=== PATIENT | female | born 2000 | race Caucasian/White ===

== ENCOUNTER 2018-09-23 12:23 | Emergency (ER) | payer BC ==
[2018-09-23 14:20] VITALS: BP 108/70
--- NOTE | 2018-09-23 15:19 | UC ---
Throat Pain/Nasal Сергей HPI - HPI Summary HPI Summary: 17-year-old female presents with progressively worsening sore throat. States that she was seen at the [facility] on Monday for fever of 103 F and sore throat. A rapid strep and flu was performed at that time which were both negative. Based on her symptoms she was treated presumptively for strep throat and placed on Pen-Vee K 500 mg twice a day 10 days which she states she has been compliant. She was also placed on prednisone 20 mg daily 5 days which she completed today. States her fevers have subsided however the sore throat has progressively gotten worse, she is having more difficulty swallowing, and she is noticing a foul taste in her mouth. States pain occasionally radiates into her left ear. Denies difficulty breathing, cough, chest pain, abdominal pain, nausea, or vomiting. - History of Current Complaint Chief Complaint: UCRespiratory Stated Complaint: SORE, SWOLLEN THROAT Time Seen by Provider: 09/23/18 14:34 Hx Obtained From: Patient Hx Last Menstrual Period: unknown Pain Intensity: 7 - Allergies/Home Medications Allergies/Adverse Reactions: Allergies Allergy/AdvReac Type Severity Reaction Status Date / Time Sulfa (Sulfonamide Allergy Rash Verified 09/23/18 14:14 Antibiotics) Home Medications: Home Medications Bcp 1 tab PO DAILY 09/23/18 [History] Penicillin VK TAB* [Penicillin VK 250 mg Tab*] 500 mg PO TID 09/23/18 [History Confirmed 09/23/18] predniSONE [Prednisone 20 MG TAB] 20 mg PO DAILY 09/23/18 [History Confirmed 05/04] PMH/Surg Hx/FS Hx/Imm Hx Previously Healthy: Yes - Denies significant PMH - Surgical History Surgical History: None - Family History Known Family History: Positive: Non-Contributory - Social History Occupation: Student Lives: Dormitory/Roommates Alcohol Use: None Substance Use Type: None Smoking Status (MU): Never Smoked Tobacco Review of Systems All Other Systems Reviewed And Are Negative: Yes Constitutional: Positive: Fever, Chills Skin: Negative: Rash Eyes: Negative: Drainage, Eye Redness ENT: Positive: Sore Throat, Ear Ache. Negative: Nasal Discharge, Sinus Congestion, Sinus Pain/Tenderness Respiratory: Negative: Shortness Of Breath, Cough Cardiovascular: Negative: Palpitations, Chest Pain Gastrointestinal: Negative: Abdominal Pain, Vomiting, Diarrhea, Nausea Genitourinary: Positive: Negative Musculoskeletal: Positive: Negative Neurological: Positive: Negative Is Patient Immunocompromised?: No Physical Exam - Summary Physical Exam Summary: GENERAL APPEARANCE: Well developed, well nourished, alert and cooperative, and appears to be in no acute distress. Hoarse voice. EYES: Conjunctiva clear. No drainage. Vision is grossly intact. EARS: External auditory canals and tympanic membranes clear, hearing grossly intact. NOSE: No nasal discharge. THROAT: Pharyngeal erythema. Tonsils 2+ with medial deviation of the left tonsil touching the uvula. Uvula midline. Malodorous breath. Oral cavity normal. Teeth and gingiva in good general condition. NECK: Neck supple. Tender moderate left anterior lymphadenopathy. CARDIAC: Normal S1 and S2. No S3, S4 or murmurs. Rhythm is regular. There is no peripheral edema, cyanosis or pallor. Extremities are warm and well perfused. Capillary refill is less than 2 seconds. Peripheral pulses intact. LUNGS: Clear to auscultation without rales, rhonchi, wheezing or diminished breath sounds. ABDOMEN: Positive bowel sounds. Soft, nondistended, nontender. No guarding or rebound. No masses or hepatosplenomegally. MUSKULOSKELETAL: ROM intact to all extremities. No joint erythema or tenderness. Normal muscular development. Normal gait. SKIN: Skin normal color, texture and turgor with no lesions or eruptions. Triage Information Reviewed: Yes Vital Signs: Initial Vital Signs Temp 98.9 F 09/23/18 14:16 Pulse 71 09/23/18 14:16 Resp 15 09/23/18 14:16 BP 108/70 09/23/18 14:16 Pulse Ox 99 09/23/18 14:16 Vital Signs Reviewed: Yes Throat Pain/Nasal Course/Dx - Course Course Of Treatment: 17-year-old female presents with progressively worsening sore throat. States that she was seen at the [facility] on Monday for fever of 103 F and sore throat. A rapid strep and flu was performed at that time which were both negative. Based on her symptoms she was treated presumptively for strep throat and placed on Pen-Vee K 500 mg twice a day 10 days which she states she has been compliant. She was also placed on prednisone 20 mg daily 5 days which she completed today. States her fevers have subsided however the sore throat has progressively gotten worse, she is having more difficulty swallowing, and she is noticing a foul taste in her mouth. States pain occasionally radiates into her left ear. Denies difficulty breathing, cough, chest pain, abdominal pain, nausea, or vomiting. Afebrile. Vital signs stable. Exam reveals a young adult female in no acute distress with notably hoarse voice, pharyngeal erythema, 2+ tonsils with a medial deviation of the left tonsil which is touching the uvula. Uvula remains midline. She has some notable tender cervical lymphadenopathy of the left anterior cervical nodes. Remainder of exam is otherwise unremarkable. I'm recommending that she be evaluated in the emergency room at this time. 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 She is electing to transport via private vehicle with her friend driving her. She was instructed to remain NPO until her evaluation. - Differential Dx/Diagnosis Differential Diagnosis/HQI/PQRI: Peritonsillar Abscess, Pharyngitis, Tonsillitis Provider Diagnosis: Peritonsillar abscess Discharge - Sign-Out/Discharge Documenting (check all that apply): Patient Departure All imaging exams completed and their final reports reviewed: No Studies - Discharge Plan Condition: Stable Disposition: HOME-RECOMMEND TO ED Patient Education Materials: Peritonsillar Abscess (ED) Referrals: No Primary Care Phys,NOPCP [Primary Care Provider] - Additional Instructions: You have a condition called peritonsilar abscess which is a collection of pus behind the wall of the tonsil. Go directly to [facility] emergency room for evaluation and treatment. Do not eat or drink until after you have been evaluated in the emergency room. - Billing Disposition and Condition Condition: STABLE Disposition: Home-Recommend to ED
== END 2018-09-23 15:30 | disposition home health service (06) ==
LOC: UCCORT 12:23
DX: J36 Peritonsillar abscess (principal); Z88.2 Allergy status to sulfonamides
CPT/HCPCS: 99202; G0463

== ENCOUNTER → 2018-09-23 17:07 | Emergency (ER) | payer BC ==
[~2018-09-23 17:07] MED LIST: Acetaminophen TAB* 325 MG PO ONE; Clindamycin 600 MG/D5W BAG(*) 600 MG/50 ML BAG IV ONE; Dexamethasone IV* 4 MG/ML 5 ML VIAL (20 MG) IVPB ONE; Iohexol 300* (CONTRAST) 10 ML SDV IV ONE; Ketorolac INJ* 30 MG/ML 1 ML VIAL IV ONE; Ketorolac INJ* 30 MG/ML 1 ML VIAL ONE; NS 0.9% 1000 ML** 1,000 ML IV ONE; Piperacillin/Tazobac ADVAN(*) 3.375 GM in NS 0.9% 100 ML* 100 ML IVPB ONE
[2018-09-23 18:07] LABS: ABS Basophils 0.1 10^3/ul (0-0.2); ABS Eosinophils 0.1 10^3/ul (0-0.6); ABS Lymphocytes 3.2 10^3/ul (1.0-4.8); ABS Monocytes 0.8 10^3/ul (0-0.8); ABS Neutrophils 7.2 10^3/ul (1.5-7.7); ABS Nucleated RBC 0 10^3/ul; Eosinophil % 0.9 %; Hematocrit 38 % (35-47); Hemoglobin 12.5 g/dl (12.0-16.0); Lymphocyte % 28.3 %; Mean Corpuscular HGB Conc 33 g/dl (31-36); Mean Corpuscular Hemoglobin 30 pg (27-31); Mean Corpuscular Volume 89 fL (80-97); Mean Platelet Volume 7.6 fL (7.4-10.4); Nucleated Red Blood Cells % 0.2; Platelet Count 337 10^3/ul (150-450); Red Cell Distribution Width 13 % (10.5-15); White Blood Count 11.4 10^3/ul (3.5-10.8)
[2018-09-23 18:23] LABS: Albumin 4.1 g/dL (3.2-5.2); Albumin/Globulin Ratio 1.4 (1-3); BUN/Creatinine Ratio 17.8 (8-20); C Reactive Protein 59.26 mg/L (<8.01); Calcium 9.1 mg/dL (8.6-10.3); EGFR African American 97.6 (>60); EGFR Non-African American 80.7 (>60); Globulin 2.9 g/dL (2-4); Potassium 3.5 mmol/L (3.5-5.0); Total Bilirubin 0.4 mg/dL (0.2-1.0)
--- NOTE | 2018-09-23 20:53 | ED ---
Throat Pain/Nasal Congestion - HPI Summary HPI Summary: Patient complains of left side sore throat pain 5 days. Patient was seen at [facility] 5 days ago was negative for flu, negative for strep but placed on Pen-Vee K and prednisone taper with no subsequent relief. Patient was seen by community care today and sent to the ED for further evaluation of possible peritonsillar abscess. Patient states she had fever, body aches and headache Monday and but has had none since. Patient denies fever, cough, neck stiffness, or change, WARREN, CP, SOB, N/V/D, abdominal pain, change in urine, change in BM. Patient has decreased by mouth intake, but tolerating fluids and food. Medical history is none. - History of Current Complaint Chief Complaint: EDThroatPain Time Seen by Provider: 09/23/18 17:47 Hx Obtained From: Patient Onset/Duration: Gradual Onset Severity: Moderate Associated Signs And Symptoms: Positive: Dysphagia. Negative: Drooling, Hoarseness Cough: None - Allergies/Home Medications Allergies/Adverse Reactions: Allergies Allergy/AdvReac Type Severity Reaction Status Date / Time Sulfa (Sulfonamide Allergy Rash Verified 09/23/18 17:15 Antibiotics) PMH/Surg Hx/FS Hx/Imm Hx Endocrine/Hematology History: Denies: Hx Diabetes Cardiovascular History: Denies: Hx Hypertension History: Denies: Hx Renal Disease Musculoskeletal History: Denies: Hx Gout Sensory History: Denies: Hx Eye Prosthesis Opthamlomology History: Denies: Hx Legally Blind EENT History: Denies: Hx Deafness Neurological History: Denies: Hx CVA Infectious Disease History: No Infectious Disease History: Denies: Traveled Outside the [place] in Last 30 Days - Family History Known Family History: Positive: Non-Contributory - Social History Alcohol Use: None Substance Use Type: Reports: None Smoking Status (MU): Never Smoked Tobacco Review of Systems Constitutional: Negative Eyes: Negative Positive: Sore Throat Cardiovascular: Negative Respiratory: Negative Gastrointestinal: Negative Genitourinary: Negative Musculoskeletal: Negative Skin: Negative Neurological: Negative Psychological: Normal All Other Systems Reviewed And Are Negative: Yes Physical Exam - Summary Physical Exam Summary: Swollen tonsil left side. No exudates. No trismus. No drooling. Normal voice. Uvula midline. Right side appears normal. Airway patent. Lung sounds clear to auscultation bilaterally. Triage Information Reviewed: Yes Vital Signs On Initial Exam: Initial Vitals Temp Pulse Resp BP Pulse Ox 98.1 F 86 16 121/67 99 09/23/18 17:12 09/23/18 17:12 09/23/18 17:12 09/23/18 17:12 09/23/18 17:12 Vital Signs Reviewed: Yes Appearance: Positive: Well-Appearing Skin: Positive: Warm Head/Face: Positive: Normal Head/Face Inspection Eyes: Positive: Normal ENT: Positive: Pharyngeal erythema, TMs normal, Tonsillar swelling, Uvula midline. Negative: Tonsillar exudate, Trismus, Muffled voice, Hoarse voice Neck: Positive: Supple Respiratory/Lung Sounds: Positive: Clear to Auscultation Cardiovascular: Positive: Normal Abdomen Description: Positive: Nontender Musculoskeletal: Positive: Normal Neurological: Positive: Normal Psychiatric: Positive: Normal AVPU Assessment: Alert - [place] Coma Scale Best Eye Response: 4 - Spontaneous Best Motor Response: 6 - Obeys Commands Best Verbal Response: 5 - Oriented Coma Scale Total: 15 Diagnostics - Vital Signs Vital Signs Temp Pulse Resp BP Pulse Ox 09/23/18 17:12 98.1 F 86 16 121/67 99 - Laboratory Lab Results: Lab Results 09/23/18 09/23/18 Range/Units 17:59 17:59 WBC 11.4 H (3.5-10.8) 10^3/ul RBC 4.20 (4.00-5.40) 10^6/ul Hgb 12.5 (12.0-16.0) g/dl Hct 38 (35-47) % MCV 89 (80-97) fL MCH 30 (27-31) pg MCHC 33 (31-36) g/dl RDW 13 (10.5-15) % Plt Count 337 (150-450) 10^3/ul MPV 7.6 (7.4-10.4) fL Neut % (Auto) 63.4 % Lymph % (Auto) 28.3 % Foster % (Auto) 6.7 % Eos % (Auto) 0.9 % Baso % (Auto) 0.7 % Absolute Neuts (auto) 7.2 (1.5-7.7) 10^3/ul Absolute Lymphs (auto) 3.2 (1.0-4.8) 10^3/ul Absolute Monos (auto) 0.8 (0-0.8) 10^3/ul Absolute Eos (auto) 0.1 (0-0.6) 10^3/ul Absolute Basos (auto) 0.1 (0-0.2) 10^3/ul Absolute Nucleated RBC 0 10^3/ul Nucleated RBC % 0.2 Sodium 137 (135-145) mmol/L Potassium 3.5 (3.5-5.0) mmol/L Chloride 103 (101-111) mmol/L Carbon Dioxide 28 (22-32) mmol/L Anion Gap 6 (2-11) mmol/L BUN 16 (6-24) mg/dL Creatinine 0.90 (0.51-0.95) mg/dL Est GFR ( Amer) 97.6 (>60) Est GFR (Non-Af Amer) 80.7 (>60) BUN/Creatinine Ratio 17.8 (8-20) Glucose 129 H (70-100) mg/dL Calcium 9.1 (8.6-10.3) mg/dL Total Bilirubin 0.40 (0.2-1.0) mg/dL AST 12 L (13-39) U/L ALT 17 (7-52) U/L Alkaline Phosphatase 47 (34-104) U/L C-Reactive Protein 59.26 H (<8.01) mg/L Total Protein 7.0 (6.4-8.9) g/dL Albumin 4.1 (3.2-5.2) g/dL Globulin 2.9 (2-4) g/dL Albumin/Globulin Ratio 1.4 (1-3) Monoscreen Negative (Negative) Result Diagrams: 09/23/18 17:59 09/23/18 17:59 Lab Statement: Any lab studies that have been ordered have been reviewed, and results considered in the medical decision making process. EENT Course/Dx - Course Course Of Treatment: Patient complains of left side sore throat pain 5 days. Patient was seen at [facility] 5 days ago was negative for flu, negative for strep but placed on Pen-Vee K and prednisone taper with no subsequent relief. Patient was seen by community care today and sent to the ED for further evaluation of possible peritonsillar abscess. Patient states she had fever, body aches and headache Monday and but has had none since. Patient denies fever, cough, neck stiffness, or change, WARREN, CP, SOB, N/V/D, abdominal pain, change in urine, change in BM. Patient has decreased by mouth intake, but tolerating fluids and food. Medical history is none. Physical exam :Swollen tonsil left side. No exudates. No trismus. No drooling. Normal voice. Uvula midline. Right side appears normal. Airway patent. Lung sounds clear to auscultation bilaterally. Vital signs within normal limits. WBC 11.4. CRP 59. Labs otherwise unremarkable. CT soft tissue neck positive for peritonsillar abscess 2 cm x [address] ENT [address] Dickerson who recommended clindamycin 600 mg IV with subsequent Rx for clindamycin by mouth. Also recommended 1 L normal saline. Patient also given Decadron 10 mg IV. ( Patient finished prednisone taper yesterday.) Tuan stated patient should call office at 8:15 tomorrow morning and they will fit her in tomorrow. - Diagnoses Provider Diagnoses: Peritonsillar abscess Discharge - Sign-Out/Discharge Documenting (check all that apply): Patient Departure Patient Received Moderate/Deep Sedation with Procedure: No - Discharge Plan Condition: Stable Disposition: HOME Prescriptions: Clindamycin HCl 450 mg PO TID 7 Days #21 capsule Patient Education Materials: Peritonsillar Abscess (ED) Referrals: No Primary Care Phys,NOPCP [Primary Care Provider] - Jay Dickerson MD [Medical Doctor] - Additional Instructions: Call Dr Dickerson [facility] at [facility]:15 Monday morning and they will give you an appointment that day. Take antibiotics as directed. Return to the ED for any new or worsening symptoms. - Billing Disposition and Condition Condition: STABLE Disposition: Home
[2018-09-23 23:18] VITALS: BP 0/0
== END | disposition home or self-care (01) ==
LOC: ED 17:07
DX: J36 Peritonsillar abscess (principal); Z88.2 Allergy status to sulfonamides
CPT/HCPCS: 36415; 70491; 80053; 85025; 86140; 86308; 96374; 96375; 99282; A9270-GY; J1100; J1885; Q9967

== ENCOUNTER 2019-08-05 14:19 | Emergency (ER) | payer BC ==
[2019-08-05 15:35] VITALS: BP 110/62
--- NOTE | 2019-08-05 16:18 | UC ---
Complaint Female HPI - HPI Summary HPI Summary: 18-year-old college student who states that she has had white vaginal discharge with extreme itchiness over the past 2 weeks. She is a virgin and has never been sexually active. She has never had a pelvic exam. She has not been on any antibiotics recently. She states the discharged of have an odor to it but not extremely foul. - History Of Current Complaint Chief Complaint: UCGU Stated Complaint: URINARY COMPLAINT Time Seen by Provider: 08/05/19 15:34 Hx Obtained From: Patient Hx Last Menstrual Period: July 24, 2019 ?: No Onset/Duration: Gradual Onset Timing: Constant Severity Initially: Mild Severity Currently: Moderate Pain Intensity: 2 Character: Burning Aggravating Factor(s): Urination - Patient had burning on urination one time yesterday Alleviating Factor(s): Nothing Associated Signs And Symptoms: Positive: Vaginal Discharge - Allergies/Home Medications Allergies/Adverse Reactions: Allergies Allergy/AdvReac Type Severity Reaction Status Date / Time Sulfa (Sulfonamide Allergy Rash Verified 08/05/19 15:30 Antibiotics) Home Medications: Home Medications Norethindrone-E.estradiol-Iron [Taytulla 1-20 mg-Mcg(24)] 1 cap PO BEDTIME 08/05 [History Confirmed 08/05/19] PMH/Surg Hx/FS Hx/Imm Hx Previously Healthy: Yes - Surgical History Surgical History: None - Family History Known Family History: Positive: Non-Contributory - Social History Occupation: Student Lives: Dormitory/Roommates Alcohol Use: Weekly Substance Use Type: None Smoking Status (MU): Never Smoked Tobacco Review of Systems All Other Systems Reviewed And Are Negative: Yes Genitourinary: Positive: Dysuria - Burning on urination one time yesterday., Vaginal/Penile Itching - vaginal itching over the past 2 weeks but today worse than other days., Vaginal/Penile Discharge - Patient states she has some whitish vaginal discharge. Is Patient Immunocompromised?: No Physical Exam Triage Information Reviewed: Yes Appearance: Well-Appearing, No Pain Distress, Well-Nourished Vital Signs: Initial Vital Signs Temp 99.1 F 08/05/19 15:31 Pulse 75 08/05/19 15:31 Resp 28 08/05/19 15:31 BP 110/62 08/05/19 15:31 Pulse Ox 100 08/05/19 15:31 Vital Signs Reviewed: Yes Eyes: Positive: Conjunctiva Clear Respiratory: Positive: Lungs clear, Normal breath sounds, No respiratory distress, No accessory muscle use Cardiovascular: Positive: RRR, No Murmur, Pulses Normal, Brisk Capillary Refill Abdomen Description: Positive: Nontender, No Organomegaly, Soft. Negative: CVA Tenderness (R), CVA Tenderness (L), Distended, Guarding, Hepatomegaly, Splenomegaly Bowel Sounds: Positive: Present Musculoskeletal Exam: Normal Neurological Exam: Normal Psychological Exam: Normal Skin Exam: Normal Complaint Female Dx - Course Course Of Treatment: The patient is comfortable here and nontoxic. She would prefer not to have a pelvic exam done today. She is going to do a self swab for AFFIRM testing. She can follow up at the [facility] if she has no relief of symptoms. I'm treating her with one dose of Diflucan but she can purchase [id number] Monistat today if the itching is unbearable. She is agreeable to this plan of action. - Differential Dx/Diagnosis Provider Diagnosis: Vaginal yeast infection Discharge ED - Sign-Out/Discharge Documenting (check all that apply): Patient Departure All imaging exams completed and their final reports reviewed: No Studies - Discharge Plan Condition: Good Disposition: HOME Prescriptions: Fluconazole 150 MG TAB* [Diflucan 150 MG TAB*] 150 mg PO UC ONCE 1 Days #1 tablet Patient Education Materials: Yeast Infection (ED) Referrals: [facility] [Outside] No Primary Care Phys,NOPCP [Primary Care Provider] - Additional Instructions: Follow up at the [facility] in 5-6 days if no improvement. You can use over the counter Monistat today if the itching is worse. - Billing Disposition and Condition Condition: GOOD Disposition: Home
--- NOTE | 2019-08-07 07:19 | UC ---
- Progress Note Progress Note: please call the pt. + BV and + [facility] will call in Flagyl 500 mg bid x 7 days Course/Dx - Diagnoses Provider Diagnoses: Vaginal yeast infection Discharge ED - Sign-Out/Discharge Documenting (check all that apply): Patient Departure All imaging exams completed and their final reports reviewed: No Studies - Discharge Plan Condition: Good Disposition: HOME Prescriptions: Fluconazole 150 MG TAB* [Diflucan 150 MG TAB*] 150 mg PO UC ONCE 1 Days #1 tablet metroNIDAZOLE [Flagyl] 500 mg PO BID #14 tablet Patient Education Materials: Yeast Infection (ED) Referrals: [facility] [Outside] No Primary Care Phys,NOPCP [Primary Care Provider] - Additional Instructions: Follow up at the [facility] in 5-6 days if no improvement. You can use over the counter Monistat today if the itching is worse. - Billing Disposition and Condition Condition: GOOD Disposition: Home
== END 2019-08-05 16:16 | disposition home or self-care (01) ==
LOC: UCCORT 14:19
DX: B37.3 Candidiasis of vulva and vagina (principal); R03.0 Elevated blood-pressure reading, without diagnosis of hypertension; Z88.2 Allergy status to sulfonamides
CPT/HCPCS: 81003; 84702; 87086; 87480; 87510; 99212; G0463